=== PATIENT | female | born 1980 | race Caucasian/White ===

== ENCOUNTER 2025-05-23 08:01 | Outpatient (CLI) | payer OTHER, SELFPAY ==
[2025-05-24 22:24] LABS: Cortisol, Serum 0.6 ug/dL
== END 2025-05-23 08:02 | disposition home or self-care (01) ==
LOC: NPINS 08:01
PROVIDERS: Visit Provider Internal Medicine Endocrinology, Diabetes & Metabolism
DX: R73.03 Prediabetes (principal)
CPT/HCPCS: 82533